=== PATIENT | female | born 1995 | race Caucasian/White ===

== ENCOUNTER → 2016-07-06 | Outpatient (CLI) | payer BC ==
--- NOTE | 2016-07-06 12:55 | DI ---
XR C-SPINE COMPLETE MIN 4VW,07/06/2016 12:15 PM: Clinical History: Neck pain Previous Exam: None at this facility. Findings: 7 views of the cervical spine are obtained, and demonstrate anatomic alignment without fractures. Lynn tebral body height is preserved. Intervertebral disc height is also preserved. The prevertebral soft tissues are unremarkable. Flexion and extension views are unremarkable. Neuroforamina are widely patent. The lung apices are clear. Impression: Normal cervical spine.
== END ==
LOC: RAD 12:08
PROVIDERS: ATTEND Physician Assistant Surgical
DX: M54.2 Cervicalgia (principal)
CPT/HCPCS: 72050